=== PATIENT | male | born 1975 | race Caucasian/White ===

== ENCOUNTER 2016-06-17 19:10 | Emergency (ER) | payer MEDICAID ==
[2016-06-17 19:22] VITALS: BP 162/99; PULSE 98; TEMP 98.6; BMI 37.5
[2016-06-17 19:37] LABS: AUTOMATED BASOPHIL 1.2 % (0-2); AUTOMATED EOSINOPHIL 1.1 % (0-5); AUTOMATED LYMPH 15.7 % (17-44); AUTOMATED MONOCYTE 9.6 % (3-10); AUTOMATED NEUTROPHIL 72.4 % (45-76); MPV 9.3 fL (7.4-10.4)
[2016-06-17 19:43] LABS: BLOOD UREA NITROGEN 11 MG/DL (9-20); CALCIUM 9.6 MG/DL (8.4-10.2); CALCULATED OSMOLALITY 263 MOs/Kg (270-290); CHLORIDE 102 mEq/L (98-107); ETOH-MGDL < 10 mg/dL; GLUCOSE 95 MG/DL (70-99); SODIUM LEVEL 137 mEq/L (137-146); TOTAL PROTEIN 7.5 G/DL (6.3-8.2)
[2016-06-17 20:36] LABS: LEUKOCYTES/URINE NEG (NEGATIVE); NITRITE/URINE NEG (NEGATIVE); URINE OCCULT BLOOD NEG (NEG/TRACE)
[2016-06-17 20:39] LABS: ALL NEG? YES; MDMA* NEG (NEGATIVE); METHAMPHETAMINES NEG (NEGATIVE); OXYCODONE NEG (NEGATIVE)
[2016-06-17 20:41] LABS: RBC/URINE 0-2 (0-2)
== END 2016-06-17 21:50 | disposition left against medical advice (07) ==
LOC: ED 19:10
DX: R56.9 Unspecified convulsions (principal); Z53.21 Procedure and treatment not carried out due to patient leaving prior to being seen by health care provider
CPT/HCPCS: 80053; 80307; 81001; 82962; 85025; 99281